=== PATIENT | female | born 1940 | race Caucasian/White ===

== ENCOUNTER 2016-10-03 21:55 | Emergency (ER) | payer SELFPAY ==
[~2016-10-03] VITALS: Ht 152.4 cm; Wt 52.0 kg
[~2016-10-03 21:55] MED LIST: AMLO10TA2 PO; AMOX1TAB64 PO; ATOR20TA9 PO; CEFD300C2 PO; CIPR500T87 PO; CLON-364 PO; CLON0.5T20 PO; CYCL-259 PO; FLUO10TA PO; HYDR-3138 PO; LISI-170 PO; LISI40TA PO; MARTAZAPINE PO; MELO-184 PO; MIRT15TA6 PO; MIRT7.5T8 PO; PHEN100C PO; PHEN50TA4 PO; TIZA2CAP PO; TIZA2TAB PO; TRAM50TA2 PO
[2016-10-03] MEDS ORDERED: ZIPRASIDONE 40MG CAPSULE PO ONE (22:23)
[2016-10-03] MEDS ORDERED: ZIPRASIDONE 20MG CAPSULE ONE (22:27)
[2016-10-03 22:57] VITALS: BP 122/73
== END 2016-10-03 22:58 | disposition home or self-care (01) ==
LOC: ED 22:50
DX: Z00.00 Encounter for general adult medical examination without abnormal findings (principal); I10 Essential (primary) hypertension; G40.909 Epilepsy, unspecified, not intractable, without status epilepticus; Z90.710 Acquired absence of both cervix and uterus
CPT/HCPCS: 99283

== ENCOUNTER 2016-10-06 16:39 | Emergency (ER) | payer MEDICARE ==
[2016-10-06 17:23] LABS: DAU SCREEN DISCLAIMER
[2016-10-06 17:40] LABS: HEMOGLOBIN 10.8 g/dL (11.7-16.4)
[2016-10-06 17:44] VITALS: BP 112/65
[2016-10-06 17:47] LABS: ASPARTATE AMINO TRANSFERASE 23 U/L (15-37); BLOOD UREA NITROGEN 17 mg/dL (7-18)
[2016-10-06 17:54] LABS: ANISOCYTOSIS 1+
[2016-10-06 17:57] LABS: ACETAMINOPHEN < 2 mcg/mL (10-30)
== END 2016-10-06 20:11 | disposition home or self-care (01) ==
LOC: ED 20:05
DX: F10.129 Alcohol abuse with intoxication, unspecified (principal); F32.9 Major depressive disorder, single episode, unspecified; N30.90 Cystitis, unspecified without hematuria; G89.29 Other chronic pain; E11.9 Type 2 diabetes mellitus without complications; E78.5 Hyperlipidemia, unspecified; I10 Essential (primary) hypertension; G40.909 Epilepsy, unspecified, not intractable, without status epilepticus; F43.20 Adjustment disorder, unspecified; Z90.710 Acquired absence of both cervix and uterus; Z90.89 Acquired absence of other organs; Z98.890 Other specified postprocedural states; Z79.899 Other long term (current) drug therapy
CPT/HCPCS: 36415; 80053; 80307; 80329; 81001; 85025; 87077; 87086; 87186; 99284; G0480